=== PATIENT | male | born 1970 | race Two or more races ===

== ENCOUNTER 2021-02-01 22:18 | Emergency (ER) | payer OTHER ==
[~2021-02-01] VITALS: Ht 172.7 cm; Wt 86.2 kg
--- NOTE | 2021-02-01 22:25 | NUR ---
Pt ambulated to ER with c/o left shoulder pain PL: 03/26 d/t unloading watermelons at work. No SOB or labored breathing, afebrile. No c/o chest pain/pressure. No GI/ distress. A/O x4.
--- NOTE | 2021-02-01 22:38 | NUR ---
Jules Anguiano at bedside, MSE in progress.
--- NOTE | 2021-02-01 22:48 | NUR ---
Xray at bedside.
[2021-02-01] MEDS ORDERED: IBUPROFEN 600 MG TABLET PO ONE (23:00)
[2021-02-01] MEDS ORDERED: IBUPROFEN 600 MG TABLET ONE (23:06)
[2021-02-01] MEDS ORDERED: BUPIVACAINE PF 0.5% 30 ML VIAL TP ONE (23:15)
[2021-02-01] MEDS ORDERED: MISCELLANEOUS MED XX ONE (23:15)
[2021-02-01] MEDS ORDERED: TRIAMCINOLONE ACETONIDE 40 MG/1 ML VIAL ONE (23:28)
[2021-02-01] MEDS ORDERED: HYDR-4209 PO (23:55)
--- NOTE | 2021-02-02 00:05 | NUR ---
Patient discharged to home in stable condition. A/O x4, no SOB or labored breathing. No c/o pain/discomfort. Left arm sling placed on patient. Written and verbal after care instructions given. Patient verbalizes understanding of instructions. Stressed follow up or return to ER for worsening s/s. Steady gait.
[2021-02-02 00:06] VITALS: BP 134/77
== END 2021-02-02 00:04 | disposition home or self-care (01) ==
LOC: ER 22:18
DX: M75.32 Calcific tendinitis of left shoulder (principal); S46.912A Strain of unspecified muscle, fascia and tendon at shoulder and upper arm level, left arm, initial encounter; X50.0XXA Overexertion from strenuous movement or load, initial encounter; Y92.512 Supermarket, store or market as the place of occurrence of the external cause; Y99.0 Civilian activity done for income or pay
CPT/HCPCS: 73030; 99283; J3301; J3490; A4663